=== PATIENT | female | born 1960 | race Caucasian/White ===

== ENCOUNTER 2017-07-22 09:01 | Day surgery (SDC) | payer OTHER ==
[~2017-07-22] VITALS: Ht 147.3 cm; Wt 99.4 kg
[2017-07-22 09:51] VITALS: Ht 147.3 cm; Wt 99.4 kg
[2017-07-22] MEDS ORDERED: BP MEDS (09:57)
[2017-07-22] MEDS ORDERED: SEIZURE MEDS (09:57)
[2017-07-22] MEDS ORDERED: DEPRESSION MEDS (09:57)
[2017-07-22] MEDS ORDERED: CHOLESTEROL MED (09:57)
[2017-07-22 10:08] VITALS: BP 137/69; PULSE 59; RESP 18
[2017-07-22] MEDS ORDERED: PROPOFOL 40 ML ONE (10:39)
[2017-07-22] MEDS ORDERED: FENTAnyl 50 MCG/ML VIAL ONE (10:39)
--- NOTE | 2017-07-22 11:03 | OPPN ---
Date/Time of Note Date/Time of Note DATE: 07/22/17 TIME: 10:58 Proc Note GI Procedure date: Jul 22, 2017 Pre-procedure Diagnosis screening colonoscopy Post-procedure Diagnosis poyp at 10 mcm[3mm] Operation Performed colonoscopy Surgeon: JORDON BOWERS MD Anesthesia Type: MAC Anesthesiologist: JOANNA OJEDA MD Estimated blood loss: none Transfusion Required: no Specimens polyp at 10 cm Grafts/Implants: none Grafts/Implants none Tubes/Drains none Complications: no Pt Condition post procedure: stable Disposition: other Indications screening colonoscopy Operative\Procedure Findings polyp 3mm at 10 cm from anus Procedure Description 3 mm sessile p[olyp,removed from anus with cold bx forceps hemorrhoids mild. JORDON BOWERS MD Jul 22, 2017 11:03
[2017-07-22 11:25] VITALS: BP 143/83; RESP 18
--- NOTE | 2017-07-22 19:37 | GILP ---
DATE OF PROCEDURE: 07/22/2017 PROCEDURE PERFORMED: Screening colonoscopy, rule out colon polyps. POSTOPERATIVE DIAGNOSIS: 1. A 3 mm polyp which is raised, polyp noted on a fold at 10 cm from the anus. This was removed with cold biopsy forceps. 2. Minimal external hemorrhoids. DESCRIPTION OF PROCEDURE: After the informed written consent was obtained, patient was asked to lay on the left lateral side. Intravenous anesthesia was given by Anesthesia, Dr. Bryan. When patient became somnolent, Olympus video colonoscope was introduced into the rectum and scope was advanced all the way to the cecum. Entire colon appeared normal. A 3 mm raised polyp was noted on a fold located at 10 cm from the anus. This was removed with help of cold biopsy forceps. Entire rest of the colon appeared normal. On the way out, no additional abnormalities detected. Minimal external hemorrhoids were noted and the procedure was terminated. On internal retroflexion, there was no additional abnormality detected. PLAN: Recommend repeat colonoscopy in 10 years. Dictated By: Chago Ornelas MD /francia/pam /Document#: [id number] ; Ghazal Scott MD
== END 2017-07-22 12:03 | disposition home or self-care (01) ==
LOC: GIL 09:01
PROVIDERS: ATTEND Internal Medicine Gastroenterology
DX: Z12.11 Encounter for screening for malignant neoplasm of colon (principal); K63.5 Polyp of colon; K64.8 Other hemorrhoids; I10 Essential (primary) hypertension; E66.01 Morbid (severe) obesity due to excess calories; Z68.42 Body mass index [BMI] 45.0-49.9, adult
CPT/HCPCS: 45380; 88305; J3010; Z7610